=== PATIENT | female | born 1985 | race Caucasian/White ===

== ENCOUNTER 2016-06-07 10:30 | Inpatient (IN) | payer BC, OTHER ==
[~2016-06-07] VITALS: Ht 152.4 cm; Wt 44.5 kg
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
[2016-06-09 20:00] VITALS: BP 122/83
[2016-06-09 20:01] LABS: *URINE HCG, QUAL NEGATIVE (NEGATIVE)
[2016-06-09 20:07] LABS: *AMPHETAMINE, URINE NEGATIVE (NEGATIVE); *BARBITURATE, URINE NEGATIVE (NEGATIVE); *CANNABINOID, URINE NEGATIVE (NEGATIVE); *COCCAINE, URINE NEGATIVE (NEGATIVE); *OPIATE, URINE NEGATIVE (NEGATIVE); *PHENCYCLIDINE SCREEN,URINE NEGATIVE (NEGATIVE)
[2016-06-09] MEDS ORDERED: LIOT5TAB8 PO (20:58)
[2016-06-09] MEDS ORDERED: LEVO88TA2 PO (20:58)
[2016-06-09] MEDS ORDERED: ACETAMINOPHEN 325 MG TABLET PO PRN (21:15)
[2016-06-09] MEDS ORDERED: LORAZEPAM 1 MG TABLET PO PRN ×2 (21:15)
[2016-06-09] MEDS ORDERED: MAGNESIUM HYDROXIDE 30 ML LIQUID UDC PO PRN (21:15)
[2016-06-09] MEDS ORDERED: LOPERAMIDE HCL 2 MG CAPSULE PO PRN ×2 (21:15)
[2016-06-09] MEDS ORDERED: LORAZEPAM 2 MG/1 ML VIAL IM PRN (21:15)
[2016-06-09] MEDS ORDERED: MAG HYDROX/AL HYDROX/SIMETH 30 ML LIQUID UDC PO PRN (21:15)
[2016-06-09] MEDS ORDERED: CLONIDINE HCL 0.1 MG TABLET PO PRN (21:15)
[2016-06-09] MEDS ORDERED: ONDANSETRON 4 MG/2 ML VIAL IM PRN (21:15)
[2016-06-09] MEDS ORDERED: DICYCLOMINE HCL 20 MG TABLET PO PRN (21:15)
[2016-06-09] MEDS ORDERED: MIRALAX 17 GM POWD.PACK PO PRN (21:15)
[2016-06-09] MEDS ORDERED: THIAMINE HCL 200 MG/2 ML VIAL IM ONE (21:15)
[2016-06-09] MEDS ORDERED: ONDANSETRON ODT 4 MG TAB.RAPDIS SL PRN (21:15)
[2016-06-09 21:45] LABS: BASOPHILS % (AUTO) 0.5 % (0.0-2.0); EOSINOPHILS # (AUTO) 0.1 K/uL (0.0-0.7); EOSINOPHILS % (AUTO) 0.7 % (0.0-7.0); HEMATOCRIT 42.9 % (37.0-47.0); HEMOGLOBIN 15.2 g/dL (12.0-16.0); LYMPHOCYTES # (AUTO) 2.2 K/uL (0.8-4.8); LYMPHOCYTES % (AUTO) 22.6 % (20.5-51.5); MEAN CORPUSCULAR HEMOGLOBIN 32.4 uug (27.0-31.0); MEAN CORPUSCULAR HGB CONC 36 g/dL (32.0-37.0); MEAN CORPUSCULAR VOLUME 91.1 fL (81.0-99.0); MONOCYTES # (AUTO) 0.4 K/uL (0.1-1.30); MONOCYTES % (AUTO) 3.9 % (0.0-11.0); NEUTROPHILS # (AUTO) 6.9 K/uL (1.8-8.9); NEUTROPHILS % (AUTO) 72.3 % (38.5-71.5); PLATELET COUNT (AUTO) 318 K/uL (150-450); RED CELL DISTRIBUTION WIDTH 12.4 % (11.5-14.5); WHITE BLOOD COUNT (AUTO) 9.6 K/uL (4.0-11.2)
[2016-06-09] MEDS: diphenhydrAMINE 50 MG CAPSULE PO PRN (21:57)
[2016-06-09] MEDS: HYDROXYZINE PAMOATE 25 MG CAPSULE PO PRN (21:57)
--- NOTE | 2016-06-09 21:57 | NUR ---
PRN Vistaril & Benadryl Patient complains of anxiety and she is asking for medication for sleep. PRN Vistaril & Benadryl given as ordered. Will continue to monitor.
[2016-06-09] MEDS ORDERED: HYDROXYZINE PAMOATE 25 MG CAPSULE ONE (22:04)
[2016-06-09] MEDS ORDERED: diphenhydrAMINE 50 MG CAPSULE ONE (22:04)
[2016-06-09 22:18] LABS: HIV-1/2 ANTIBODY NON REACTIVE (NONREACTIVE)
[2016-06-09 22:19] LABS: HIV-1 p24 ANTIGEN NON REACTIVE (NONREACTIVE)
--- NOTE | 2016-06-09 22:57 | NUR ---
PRN Reassessment Patient verbalized decreased in anxiety. PRN Vistaril effective. PRN Benadryl still not effective at this time. Will continue to monitor.
[2016-06-09 23:20] VITALS: BP 109/67
--- NOTE | 2016-06-09 23:20 | NUR ---
PRN Ativan and Motrin Patient verbalized that she is having visual and auditory hallucinations. Pt stated " I am starting to see lights and shadows and hearing crackling sounds. Pt c/o 06/07 headache. Hand tremors felt. Vitals checked and WNL B/P 109/67, MD 98, RR 16, O2Sat 97%. PRN Ativan and Motrin given as ordered. Will continue to monitor for effectiveness of medication.
[2016-06-09] MEDS: IBUPROFEN 400 MG TABLET PO PRN (23:23)
[2016-06-09] MEDS ORDERED: LORAZEPAM 1 MG TABLET ONE (23:27)
[2016-06-09] MEDS ORDERED: IBUPROFEN 400 MG TABLET ONE (23:31)
--- NOTE | 2016-06-10 00:20 | NUR ---
PRN Reassessment Patient verbalized decreased in anxiety and relief in headache. Patient denies visual and auditory hallucinations at this time. CIWA 3 noted at this time. Will continue to monitor.
[2016-06-10 04:00] VITALS: BP 110/71
--- NOTE | 2016-06-10 07:23 | NUR ---
END OF SHIFT NOTE: Patient is a 30 y/o female admitted last night for ETOH dependence. Patient reported drinking 1-1.5 pint of Vodka daily for 4 months. Medical History of Anxiety, Depression, PTSD, Eating disorder, Anorexia, Bulimia, Hypothyroidism, hepatic Encephalopathy, Cirrhosis, History of suicide and history of Cocaine, Meth, MJ, Opiate use. Fall precautions noted. Patient is on a Vegan diet with eggs allowed. Allergies to Penicillins. Full Code Status. Initial COWS is 4. At 2320, pt c/o of visual and auditory hallucinations. CIWA 8 noted at that time. Pt was given PRN Ativan 1mg and Motrin for headache and were effective. Pt reported medication is effective in controlling withdrawal symptoms by the decrease in CIWA scores from 8 to 3. Pt was also given PRN Vistaril & Benadryl and were effective. Pt remained stable and vitals remains WNL. Pt slept for a total of 5 hours. Pt consumed 396ml of fluids. Voided 2x with no bowel movement. All needs attended & met. Safety precautions are in place. Will endorse pt to day shift nurse.
[2016-06-10 07:36] LABS: ALANINE AMINOTRANSFERASE 25 U/L (14-59); ALBUMIN 3.7 g/dL (3.4-5.0); ALKALINE PHOSPHATASE 49 U/L (50-136); AMYLASE 79 U/L (25-115); ASPARTATE AMINOTRANSFERASE 20 U/L (15-37); BILIRUBIN,TOTAL 0.6 mg/dL (0.2-1.0); CALCIUM 8.8 mg/dL (8.5-10.1); CARBON DIOXIDE 32 mmol/L (21-32); CHLORIDE 103 mmol/L (98-107); CREATININE 0.6 mg/dL (0.6-1.3); GFR 117 mL/min (>60); GLUCOSE 95 mg/dL (74-106); LIPASE 104 U/L (73-393); MAGNESIUM 2.2 mg/dL (1.8-2.4); POTASSIUM 3.1 mmol/L (3.5-5.1); SODIUM SERUM 138 mmol/L (136-145); TOTAL PROTEIN, SERUM 6.4 g/dL (6.4-8.2); UREA NITROGEN, BLOOD 16 mg/dL (7-18)
[2016-06-10 07:37] LABS: AMMONIA 27 umol/L (11-32)
[2016-06-10 07:43] LABS: ETHANOL < 3 MG/DL (0-0)
[2016-06-10 07:50] LABS: THYROID STIMULATING HORMONE < 0.007 mIU/mL (0.358-3.740)
--- NOTE | 2016-06-10 08:06 | NUR ---
BEGINNING OF SHIFT Patient endorsement report received from mold shifter nurse, all pertinent information discussed. Patient is a 30 year old Female, full code, with allergies to: penicillin, regular diet. Patient with admitting Dx: etoh dependence. Patient with past medical history of: anxiety,depression, PTSD, eating d/o, anorexia, bulimia, hypothyroidism, hepatic encephalopathy, cirrhosis, hx of suicide (On December 2013) . Substance use history of: etoh 1-1.5 pint of vodka daily for 4 months, and hx of cocaine, marijuana, methamphetamine, OxyContin use. As per mold shifter patient received PRN: Vistaril and Benadryl as ordered and effective as per mold shifter. Patient with last ciwa score of: 3. Patient received awake, alert and oriented x4, educated patient regarding plan of care for the day and medication regimen with good verbal understanding. safety measures in place, call light kept with in reach, will continue to monitor.
[2016-06-10 09:00] VITALS: BP 102/73
[2016-06-10] MEDS ORDERED: TUBERCULIN,PURIF.PROT.DERIV. 5 TU/0.1 ML TEST ID ONE (09:00)
[2016-06-10] MEDS: PATIENT MAY USE OWN MED- MD OK PO SCH (09:00)
[2016-06-10] MEDS ORDERED: PATIENT MAY USE OWN MED- MD OK PO SCH ×2 (09:00→11:32)
[2016-06-10] MEDS ORDERED: POTASSIUM CHLORIDE 20 MEQ TAB.PRT.SR PO ONE (09:30)
[2016-06-10] MEDS: LORAZEPAM 1 MG TABLET PO SCH ×4 (09:39→20:49)
[2016-06-10] MEDS: THIAMINE HCL 100 MG TABLET PO SCH (09:39)
[2016-06-10] MEDS: MULTIVITAMINS,THERAPEUTIC TABLET PO SCH (09:39)
[2016-06-10] MEDS: FOLIC ACID 1 MG TABLET PO SCH (09:39)
--- NOTE | 2016-06-10 11:38 | NUR ---
REFUSAL OF SYNTHROID Per patient requested to take home medication Synthroid tomorrow morning, before breakfast, notified MD and ok per MD to administer tomorrow morning.
[2016-06-10 12:47] VITALS: BP 104/72
[2016-06-10 16:15] VITALS: BP 103/69
--- NOTE | 2016-06-10 19:25 | NUR ---
END OF SHIFT Patient alert and oriented x4, vital signs were stable during shift, patient compliant with therapeutic plan of care. Patient with admitting Dx: etoh dependence. Patient continues on 5 day Ativan taper as ordered, and is currently on day 1 of taper, well tolerated, no ASE noted. 0900 assessment patient presented with: intermittent nausea, sweating, anxiety and very mild sensitivity to noise with ciwa score of: 12, patient was offered and refused anti nausea medications. 1300 assessment patient presented: barely sweating, anxiety and very mild sensitivity to noise with ciwa score of: 5; 1700 assessment patient presented with: barely sweating, anxiety and very mild sensitivity to noise with ciwa score of: 5; . Patient encouraged to attend group therapies/sessions to learn new coping skills to prevent relapse, preferred to stay in room, despite much encouragement, denies SI/HI. Patient encouraged adequate PO fluid intake as tolerated. Safety measures in place. will continue to monitor. safety measures in place.
--- NOTE | 2016-06-10 19:30 | NUR ---
START OF SHIFT NOTE: Patient is a 30 y/o female admitted last night for ETOH dependence. Patient reported drinking 1-1.5 pint of Vodka daily for 4 months. Medical History of Anxiety, Depression, PTSD, Eating disorder, Anorexia, Bulimia, Hypothyroidism, hepatic Encephalopathy, Cirrhosis, History of suicide and history of Cocaine, Meth, MJ, Opiate use. Fall precautions noted. Patient is on a Vegan diet with eggs allowed. Allergies to Penicillins. Full Code Status. Patient is alert & oriented x4. No shortness of breath noted. Respiration even & unlabored. Abdomen soft & non-distended. Bowel sounds active in all four quadrants. No nausea/vomiting noted. Patient complains of 2/10 headache, sweating & anxiety. Slight bilateral hand tremors noted. No hallucinations. Patient denies SI/HI. Safety precautions are in place. Bed locked in lowest position. Both side rails up. Call light within pts reach. Will continue to monitor.
[2016-06-10 20:00] VITALS: BP 135/95
[2016-06-10] MEDS: HYDROXYZINE PAMOATE 25 MG CAPSULE PO PRN (20:49)
[2016-06-10] MEDS: diphenhydrAMINE 50 MG CAPSULE PO PRN (20:49)
[2016-06-10] MEDS: IBUPROFEN 400 MG TABLET PO PRN (20:49)
--- NOTE | 2016-06-10 20:49 | NUR ---
PRN Motrin & Vistaril Patient complains of 4/10 headache and anxiety. Pt appears restless and anxious. PRN Motrin & Vistaril given as ordered. Will continue to monitor.
[2016-06-10] MEDS ORDERED: TRAZODONE 50 MG TABLET PO SCH (21:45)
--- NOTE | 2016-06-10 21:47 | NUR ---
PRN GIVEN Patient complains of stomach cramps, sweating, anxiety & insomnia. PRN Bentyl, Catapres, & Trazodone given as ordered. Vitals WNL. Will continue to monitor patient.
[2016-06-10 21:48] VITALS: BP 112/61
[2016-06-10] MEDS ORDERED: TRAZODONE 50 MG TABLET ONE (21:49)
--- NOTE | 2016-06-10 22:47 | NUR ---
PRN Reassessment Patient verbalized relief from abdominal cramping and decrease in anxiety noted. Patient still not able to sleep at this time. No s/s of distress noted. Will continue to monitor patient.
[2016-06-11] VITALS: BP 93/56
--- NOTE | 2016-06-11 00:45 | NUR ---
MD COMMUNICATION PT C/O HAVING TROUBLE SLEEPING. PSYCH DR. SANCHEZ NOTIFIED WITH ORDERS TO GIVEN TRAZODONE 100MG X1. ORDERS NOTED AND CARRIED OUT.
--- NOTE | 2016-06-11 00:58 | NUR ---
TRAZODONE X1 TRAZODONE 100MG X1 GIVEN TO PATIENT ORDERED FOR INSOMNIA. PT LYING IN BED AND APPEARS COMFORTABLE. WILL CONTINUE TO MONITOR.
[2016-06-11] MEDS ORDERED: TRAZODONE 100 MG TABLET PO SCH (01:00)
--- NOTE | 2016-06-11 01:58 | NUR ---
PRN Reassessment Patient asleep at this time and appears comfortable. No shortness of breath noted. Respiration even & unlabored. Safety precautions are in place. Will continue to monitor patient.
[2016-06-11 04:00] VITALS: BP 93/47
[2016-06-11 05:55] LABS: HCV AB <0.1 s/co ratio (0.0-0.9); HEPATITIS B CORE AB, IgM Negative (Negative); HEPATITIS B SURFACE AG Negative (Negative)
[2016-06-11] MEDS: PATIENT MAY USE OWN MED- MD OK PO SCH (06:47)
--- NOTE | 2016-06-11 07:40 | NUR ---
END OF SHIFT NOTE: Patient is a 30 y/o female admitted last night for ETOH dependence. Patient reported drinking 1-1.5 pint of Vodka daily for 4 months. Medical History of Anxiety, Depression, PTSD, Eating disorder, Anorexia, Bulimia, Hypothyroidism, hepatic Encephalopathy, Cirrhosis, History of suicide and history of Cocaine, Meth, MJ, Opiate use. Fall precautions noted. Patient is on a Vegan diet with eggs allowed. Allergies to Penicillins. Full Code Status. Pt was having trouble sleeping last night and was given Trazodone 50mg but was not effective. Trazodone 100mg was then given one time per Dr. Moulton orders and was effective. Pt was also given PRN Motrin, Vistaril, Bentyl, & Clonidine and were effective. Pt remained stable and vitals remains WNL. Pt slept for a total of 4 hours. Pt consumed 500ml of fluids. Voided 2x with no bowel movement. All needs attended & met. Safety precautions are in place. Will endorse pt to day shift nurse.
[2016-06-11] MEDS ORDERED: TRAZODONE 50 MG TABLET PO PRN (07:47)
--- NOTE | 2016-06-11 08:01 | NUR ---
BEGINNING OF SHIFT Patient endorsement report received from evening or night nurse supervisor nurse, all pertinent information discussed. Patient is a 30 year old Female, full code, with allergies to: penicillin, regular diet. Patient with admitting Dx: etoh dependence. Patient with past medical history of: anxiety,depression, PTSD, eating d/o, anorexia, bulimia, hypothyroidism, hepatic encephalopathy, cirrhosis, hx of suicide (On December 2013) . Substance use history of: etoh 1-1.5 pint of vodka daily for 4 months, and hx of cocaine, marijuana, methamphetamine, OxyContin use. Patient continues on ativan taper as ordered, well toleraed, no ASE noted. As per evening or night nurse supervisor patient received PRN: Vistaril, Benadryl, motrin, clonidine, and trazodone as ordered and effective as per evening or night nurse supervisor. Patient slept for 4 hours. Patient with last ciwa score of: 8. Patient received awake, alert and oriented x4, educated patient regarding plan of care for the day and medication regimen with good verbal understanding. safety measures in place, call light kept with in reach, will continue to monitor.
[2016-06-11 08:23] VITALS: BP 92/60
[2016-06-11 08:50] LABS: BASOPHILS % (AUTO) 0.6 % (0.0-2.0); EOSINOPHILS # (AUTO) 0.2 K/uL (0.0-0.7); EOSINOPHILS % (AUTO) 2.8 % (0.0-7.0); HEMATOCRIT 40.6 % (37.0-47.0); HEMOGLOBIN 13.9 g/dL (12.0-16.0); LYMPHOCYTES # (AUTO) 3.1 K/uL (0.8-4.8); LYMPHOCYTES % (AUTO) 52.9 % (20.5-51.5); MEAN CORPUSCULAR HEMOGLOBIN 31.9 uug (27.0-31.0); MEAN CORPUSCULAR HGB CONC 34 g/dL (32.0-37.0); MEAN CORPUSCULAR VOLUME 93.1 fL (81.0-99.0); MONOCYTES # (AUTO) 0.4 K/uL (0.1-1.30); MONOCYTES % (AUTO) 7.6 % (0.0-11.0); NEUTROPHILS # (AUTO) 2.1 K/uL (1.8-8.9); NEUTROPHILS % (AUTO) 36.1 % (38.5-71.5); PLATELET COUNT (AUTO) 235 K/uL (150-450); RED BLOOD CELL COUNT(AUTO) 4.37 MIL/uL (4.20-5.40); RED CELL DISTRIBUTION WIDTH 12.5 % (11.5-14.5); WHITE BLOOD COUNT (AUTO) 5.8 K/uL (4.0-11.2)
[2016-06-11 09:07] LABS: CARBON DIOXIDE 25 mmol/L (21-32); CHLORIDE 109 mmol/L (98-107); CREATININE 0.5 mg/dL (0.6-1.3); GFR > 130 mL/min (>60); GLUCOSE 99 mg/dL (74-106); MAGNESIUM 2.1 mg/dL (1.8-2.4); PHOSPHOROUS 3.6 mg/dL (2.5-4.9); POTASSIUM 4.4 mmol/L (3.5-5.1); SODIUM SERUM 142 mmol/L (136-145); UREA NITROGEN, BLOOD 15 mg/dL (7-18)
[2016-06-11] MEDS: THIAMINE HCL 100 MG TABLET PO SCH (09:58)
[2016-06-11] MEDS: LORAZEPAM 1 MG TABLET PO SCH ×2 (09:58→14:03)
[2016-06-11] MEDS: MULTIVITAMINS,THERAPEUTIC TABLET PO SCH (09:58)
[2016-06-11] MEDS: FOLIC ACID 1 MG TABLET PO SCH (09:58)
[2016-06-11 13:54] VITALS: BP 92/60
--- NOTE | 2016-06-11 15:07 | NUR ---
AMA Patient states that she wants to leave AMA d/t wants to go home. Patient educated about the risk and consequences of leaving AMA, patient verbalized understanding but still requested to leave. multiple staff member spoke with patient wihout any sucess. VS are WNL, patient denies any SI/HI. skin intact Dr. Burnham notified. Patient was given a list of community resources in case she is in need of help. all belongins returned to patient. Patient left the facility at 1507.
[2016-06-12] MEDS ORDERED: LORAZEPAM 1 MG TABLET PO SCH (09:00)
[2016-06-13] MEDS ORDERED: LORAZEPAM 1 MG TABLET PO SCH (09:00)
[2016-06-14] MEDS ORDERED: LORAZEPAM 1 MG TABLET PO SCH (09:00)
== END 2016-06-11 15:17 | disposition left against medical advice (07) | DRG 894 ==
LOC: SRC 06-09 18:32
PROVIDERS: ADMIT Internal Medicine; ATTEND Internal Medicine
PROC: HZ2ZZZZ Detoxification Services for Substance Abuse Treatment (ICD-10-PCS; principal; 2016-06-09)
PROC: HZ31ZZZ Individual Counseling for Substance Abuse Treatment, Behavioral (ICD-10-PCS; 2016-06-11)
DX: F10.230 Alcohol dependence with withdrawal, uncomplicated (principal); F33.1 Major depressive disorder, recurrent, moderate; F50.2 Bulimia nervosa; F15.21 Other stimulant dependence, in remission; F14.90 Cocaine use, unspecified, uncomplicated; Y90.9 Presence of alcohol in blood, level not specified; Z88.0 Allergy status to penicillin; K70.9 Alcoholic liver disease, unspecified; F43.10 Post-traumatic stress disorder, unspecified; F17.210 Nicotine dependence, cigarettes, uncomplicated; F12.90 Cannabis use, unspecified, uncomplicated; E87.6 Hypokalemia; E03.9 Hypothyroidism, unspecified; T14.90 Injury, unspecified; T74.21XS Adult sexual abuse, confirmed, sequela; G47.00 Insomnia, unspecified
CPT/HCPCS: 36415; 80307; 83690; 83735; 84100; 84443; 84703; 85025; 86580; 86592; 86705; 86803; 87340; 87806; 93005; A4663; G6040-TC; Q0163